=== PATIENT | male | born 1985 | race Caucasian/White ===

== ENCOUNTER 2020-07-15 20:57 | Emergency (ER) | payer OTHER, SELFPAY ==
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
[2020-07-15 21:11] VITALS: BP 121/89; PULSE 108; RESP 16; TEMP 36.6; O2SAT 98
--- NOTE | 2020-07-15 23:58 | PC.NURSE ---
Pt called multiple times by charge nurse, registration, and triage nurse. Not noted in waiting room.
== END 2020-07-15 23:58 | disposition left against medical advice (07) ==
LOC: ANHED 07-31 13:45
PROVIDERS: Emergency Provider Emergency Medicine; PCP Emergency Medicine
DX: S41.102A Unspecified open wound of left upper arm, initial encounter (principal)
CPT/HCPCS: 73090; 73110; 73130; 99199

== ENCOUNTER 2020-07-16 11:44 | Emergency (ER) | payer OTHER, SELFPAY ==
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
[2020-07-16 12:17] VITALS: BP 120/79; PULSE 92; RESP 20; TEMP 36.6; O2SAT 100
--- NOTE | 2020-07-16 13:40 | PC.NURSE ---
Attempted to cleanse wounds at this time, pt escalating and states that RN must stop. Pt will not allow R shoulder to be cleansed, asking for pain medication, this rn informed pt that the provider will have to see him first. Pt refusing to have wounds cleansed until that time.
[2020-07-16] MEDS: HYDROcodone/acetaminophen (*CRX) 5-325 MG TABLET 1 TAB PO (14:12)
[2020-07-16] MEDS: TETANUS,DIPHTHERIA,AC PERTUSSIS ADULT (0.5 ML) BOOSTRIX IM (14:13)
--- NOTE | 2020-07-16 14:16 | PC.NURSE ---
Pt medicated per provider. Pt refusing to let wounds be cleansed, states he does not want them touched and will clean at home.
--- NOTE | 2020-07-16 14:20 | PC.NURSE ---
INGA palmer updated on pt refusal for wound cleansing.
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
[2020-07-16 14:51] VITALS: BP 157/99; PULSE 92; RESP 16; O2SAT 100
== END 2020-07-16 14:52 | disposition home or self-care (01) ==
PROVIDERS: Emergency Provider Emergency Medicine; PCP Emergency Medicine
DX: S80.212A Abrasion, left knee, initial encounter (principal); S80.211A Abrasion, right knee, initial encounter; S50.812A Abrasion of left forearm, initial encounter; S50.312A Abrasion of left elbow, initial encounter; S60.512A Abrasion of left hand, initial encounter; S39.92XA Unspecified injury of lower back, initial encounter; F17.200 Nicotine dependence, unspecified, uncomplicated; V28.4XXA Motorcycle driver injured in noncollision transport accident in traffic accident, initial encounter; Z23 Encounter for immunization
CPT/HCPCS: 72110; 90471; 90715; 99284; A9270

== ENCOUNTER 2020-09-21 21:18 | Emergency (ER) | payer OTHER, SELFPAY ==
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
[2020-09-21 21:42] VITALS: O2SAT 100
--- NOTE | 2020-09-21 21:50 | ECG_ITS ---
Measurements Intervals [place] Rate: 100 P: 72 NE: 159 QRS: 59 QRSD: 95 T: 65 QT: 346 QTc: 447 Interpretive Statements SINUS T[address]ARD[address] ELEVATION IN ANTERIOR LEADS- PROBABLY EARLY REPOLARIZATION ABNORMALITY BORDERLINE ECG Electronically Signed On 09-24-2020 19:01:28 CDT by Urbano Corcoran D.O.
[2020-09-21 21:51] VITALS: BP 123/77; PULSE 99; RESP 16; TEMP 37; O2SAT 100
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
== END 2020-09-21 22:15 | disposition short-term general hospital (02) ==
PROVIDERS: Emergency Provider Emergency Medicine; PCP Emergency Medicine
DX: S06.0X9A Concussion with loss of consciousness of unspecified duration, initial encounter (principal); S02.2XXA Fracture of nasal bones, initial encounter for closed fracture; S02.32XA Fracture of orbital floor, left side, initial encounter for closed fracture; S02.832A Fracture of medial orbital wall, left side, initial encounter for closed fracture; S02.40DA Maxillary fracture, left side, initial encounter for closed fracture; S01.512A Laceration without foreign body of oral cavity, initial encounter; S01.511A Laceration without foreign body of lip, initial encounter; R91.8 Other nonspecific abnormal finding of lung field; K42.9 Umbilical hernia without obstruction or gangrene; K76.0 Fatty (change of) liver, not elsewhere classified; R00.0 Tachycardia, unspecified; R94.31 Abnormal electrocardiogram [ECG] [EKG]; Y04.2XXA Assault by strike against or bumped into by another person, initial encounter
CPT/HCPCS: 36415; 70450; 70486; 71260; 72125; 74177; 93005; 99285; Q9967

== ENCOUNTER 2022-03-07 10:42 | Emergency (ER) | payer OTHER, SELFPAY ==
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
[2022-03-07 11:06] VITALS: BP 123/71; PULSE 99; RESP 18; TEMP 36.4; O2SAT 100
== END 2022-03-07 11:45 | disposition home or self-care (01) ==
PROVIDERS: Emergency Provider Nurse Practitioner Family; PCP Emergency Medicine
DX: S22.42XA Multiple fractures of ribs, left side, initial encounter for closed fracture (principal); W17.89XA Other fall from one level to another, initial encounter; F17.290 Nicotine dependence, other tobacco product, uncomplicated
CPT/HCPCS: 71101; 99213; G0463

== ENCOUNTER 2022-04-21 07:06 | Outpatient (CLI) | payer OTHER, SELFPAY ==
[2022-04-21 07:49] LABS: Basophils Percent Auto 0.3 % (0.2-1.2); Eosinophils Absolute Auto 0.1 K/mm3 (0-0.3); Eosinophils Percent Auto 1.5 % (0-4.4); Hematocrit 45.5 % (42.0-52.0); Hemoglobin 15.1 g/dL (14.0-18.0); Immature Granulocyte Absolute 0.02 K/mm3 (0.00-0.031); Immature Granulocyte Percent A 0.3 % (0-0.5); Lymphocytes Absolute Auto 2.26 K/mm3 (0.9-3.2); Lymphocytes Percent Auto 33.8 % (18.3-44.2); Mean Corpuscular HGB Conc 33.2 g/dl (32-36); Mean Corpuscular Hemoglobin 30.5 pg (26-34); Mean Corpuscular Volume 91.9 fl (80-100); Mean Platelet Volume 10.5 fl (7.4-10.4); Monocytes Absolute Auto 0.6 K/mm3 (0.1-0.6); Monocytes Percent Auto 9.6 % (2.6-8.5); Neutrophils Absolute Auto 3.6 K/mm3 (1.3-6.7); Neutrophils Percent Auto 54.5 % (45.5-73.1); Platelet Count Result 200 k/mm3 (150-375); Red Blood Count 4.95 M/mm3 (4.6-6.20); Red Cell Distribution Width 13.1 % (11.5-14.5); White Blood Count 6.7 K/mm3 (4.5-10.0)
[2022-04-21 07:58] LABS: Alanine Aminotransferase 43 U/L (6-50); Albumin Level 4.6 g/dL (3.5-5.1); Alkaline Phosphatase 89 U/L (38-126); Anion Gap 6 mmol/L (8-16); Aspartate Amino Transferase 33 U/L (17-59); Bilirubin,Total 0.5 mg/dL (0.2-1.3); Blood Urea Nitrogen 20 mg/dL (9-20); Calcium 8.7 mg/dL (8.4-10.2); Carbon Dioxide 26 mmol/L (22-30); Chloride 108 mmol/L (98-107); Cholesterol 137 mg/dL (0-200); Estimated Glomerular Filt Rate > 60; Glucose 94 mg/dL (65-110); HDL Direct 22 mg/dL; Potassium 4.6 mmol/L (3.4-5.0); Sodium 140 mmol/L (137-145); Triglycerides 91 mg/dL (<150)
[2022-04-21 08:09] LABS: LDL Cholesterol Direct 91 mg/dL
[2022-04-21 08:28] LABS: Thyroid Stimulating Hormone 0.991 uIU/mL (0.465-4.680)
[2022-04-21 08:31] LABS: Hemoglobin A1C 5.3 % (<5.7)
== END 2022-04-21 07:07 | disposition home or self-care (01) ==
LOC: ANHLAB 07:07
PROVIDERS: PCP Family Medicine; Visit Provider Family Medicine
DX: I10 Essential (primary) hypertension (principal); R00.2 Palpitations; R63.5 Abnormal weight gain; Z13.220 Encounter for screening for lipoid disorders; Z83.3 Family history of diabetes mellitus; E11.9 Type 2 diabetes mellitus without complications; E78.2 Mixed hyperlipidemia
CPT/HCPCS: 36415; 80053; 80061; 83036; 84443; 85025

== ENCOUNTER 2022-06-09 10:05 | Outpatient (CLI) | payer OTHER, SELFPAY ==
--- NOTE | ~2022-06-09 | CT_ITS ---
CT Scan of the Chest without Contrast: Clinical Indication: Shortness of breath Technique: Contiguous sections were acquired throughout the chest without intravenous contrast. Dose reduction technique was used on this scan by utilizing automated exposure control and iterative recon struction technique. The dose-length product (DLP) was 312.60 mGy-cm. COMPARISON: 09/21/2020 Findings: Small calcified bilateral hilar lymph nodes are present. No pathologic lymphadenopathy seen in the ch est. The mediastinal soft tissues appear normal. There is no evidence of pleural or pericardial effusion. Calcified right upper lobe granuloma noted. There is minimal right basilar scarring or atelectasis. Images through the upper abdomen reveal no abnormalities. Impression: No acute abnormality. Evidence of prior granulomatous disease. Reviewed, dictated and finalized at [facility]. D CERTIFIED ARTS THERAPIST Impression: No acute abnormality. Evidence of prior granulomatous disease.
== END 2022-06-09 10:06 | disposition home or self-care (01) ==
PROVIDERS: PCP Family Medicine; Visit Provider Physician Assistant
DX: R06.00 Dyspnea, unspecified (principal); R91.8 Other nonspecific abnormal finding of lung field
CPT/HCPCS: 71250

== ENCOUNTER 2022-07-25 14:00 | Emergency (ER) | payer OTHER, SELFPAY ==
[2022-07-25 14:13] VITALS: BP 122/69; PULSE 74; RESP 18; TEMP 36.9; O2SAT 97
--- NOTE | 2022-07-25 15:04 | ED.EYEPROB ---
HPI - Eye Problem General Chief complaint: Eye Problems Stated complaint: Lt Eye Irritation Time Seen by Provider: 07/25/22 14:39 Source: patient Mode of arrival: ambulatory Limitations: no limitations History of Present Illness HPI Narrative: Patient presents today with left eye discomfort, blurred vision, photophobia. He was cutting rebar yesterday when his safety glasses came down and a spark went into his left eye. A few hours later he started experiencing the discomfort. He has attempted removal of the foreign body, which is visually evident, but has been unsuccessful. Related Data Home Medications Medication Instructions Recorded Confirmed No Home Medications 07/25/22 07/25/22 Allergies Allergy/AdvReac Type Severity Reaction Status Date / Time Penicillins AdvReac Severe Swelling Verified 07/25/22 14:05 of Lip/Tongue/Throat Review of Systems Review of Systems: CONSTITUTIONAL: Denies body aches, fever, chills, or sweats. EYES: +left eye foreign body, photophobia, blurred vision ENT: Denies rhinorrhea, congestion, sore throat, or otalgia. CARDIOVASCULAR: Denies chest pain, palpitations, or edema. RESPIRATORY: Denies cough or dyspnea. GASTROINTESTINAL: Denies abdominal pain, nausea, vomiting, or diarrhea. GENITOURINARY: Denies dysuria or hematuria. SKIN: Denies rash, itching, or wounds. MUSCULOSKELETAL: Denies back pain, joint pain, or myalgia. NEUROLOGIC: Denies headache, numbness, tingling, or weakness. PSYCH: Denies depression or anxiety. 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, initial encounter Dyspnea Encounter for screening for cardiovascular disorders Erectile dysfunction Injury of right index finger Left foot pain Left hand pain Left wrist pain Major depressive disorder, single episode, unspecified Neck pain Other chronic pain Periodic health assessment, general screening, adult Personal history of nicotine dependence PTSD (post-traumatic stress disorder) Radiculopathy of cervical spine Right elbow pain Right hand pain Screening for STDs (sexually transmitted diseases) Swelling of lymph nodes Unprotected sexual intercourse Unspecified dislocation of right acromioclavicular joint, initial encounter Surgical History Surgical History Hx of tonsillectomy Family History Family History Father Carcinoma of colon Social History Social History Social History: Smoking packs per day: 0.25 Smoking cigarettes per day: 5.0 Years smoked: 25 Smoking pack-years: 6.25 Smoking status: Former smoker Tobacco type: cigarettes Alcohol intake: former Substance use: never Substance use type: does not use Living arrangements: with family Occupation/Education: unemployed Gender identity (if verbalized by the patient): Male Sexual Orientation (if Verbalized by the Patient): Straight or Heterosexual Comments At time of signature, I have reviewed and agree with nursing past medical, surgical, social and family history unless otherwise noted. Please see nursing chart for further information. There is no relevant family history pertinent to the presenting complaint Exam Narrative: GENERAL: Well-appearing, well-nourished, and in no acute distress. HEAD: Normocephalic, atraumatic. EYES: EOMI. Left eye: redness. Obvious dark foreign body to 9 oclock position of the iris with possible rust ring. Attempted removal.
== END 2022-07-25 15:26 | disposition short-term general hospital (02) ==
PROVIDERS: Emergency Provider Nurse Practitioner; PCP Family Medicine
DX: T15.82XA Foreign body in other and multiple parts of external eye, left eye, initial encounter (principal); X58.XXXA Exposure to other specified factors, initial encounter; Z87.891 Personal history of nicotine dependence
CPT/HCPCS: 99212; A9270; G0463

== ENCOUNTER 2022-12-30 15:23 | Outpatient (CLI) | payer OTHER, SELFPAY ==
--- NOTE | ~2022-12-30 | XR_ITS ---
EXAMINATION: XR chest 2V 12/30/2022 15:39 INDICATION: Pleurodynia. Left-sided rib pain. PROCEDURE: 2 view chest COMPARISON: 07/05/2017 FINDINGS: The lungs are clear. The cardiomediastinal silhouette is within normal limits. There are no pleural effusions. There is no pneumothorax suspected. IMPRESSION: 1: NO ACUTE CARDIOPULMONARY DISEASE. Reviewed, dictated and finalized at location B.
== END 2022-12-30 15:24 | disposition home or self-care (01) ==
PROVIDERS: PCP Family Medicine; Visit Provider Physician Assistant
DX: R07.81 Pleurodynia (principal)
CPT/HCPCS: 71046

== ENCOUNTER 2023-04-13 13:33 | Outpatient (CLI) | payer OTHER, SELFPAY ==
[2023-04-13 14:27] LABS: Influenza A QL RT-PCR Positive (Negative); Influenza B QL RT-PCR Negative (Negative); RSV RNA, RT-PCR Negative (Negative); SARS-CoV-2 RNA PCR Negative (Negative)
== END 2023-04-13 13:34 | disposition home or self-care (01) ==
LOC: ANHLAB 13:34
PROVIDERS: PCP Family Medicine; Visit Provider Family Medicine
DX: J98.8 Other specified respiratory disorders (principal); R05.9 Cough, unspecified; Z20.822 Contact with and (suspected) exposure to COVID-19
CPT/HCPCS: 87637

== ENCOUNTER 2023-04-20 17:02 | Outpatient (CLI) | payer OTHER, SELFPAY ==
--- NOTE | ~2023-04-20 | XR_ITS ---
EXAM: XR elbow RT min 3V DATE: 04/20/2023 17:18 HISTORY: S59.909A - Unspecified injury of unspecified elbow, initi... . COMPARISON: X-ray forearm 07/15/2020. FINDINGS: Normal mineralization. No fracture or dislocation. No lytic or blastic lesion. Joint space s are maintained. No erosion or periosteal change. Soft tissues within normal limits. IMPRESSION: No acute osseous finding in the right elbow. Reviewed, dictated and finalized at location K. [facility]
== END 2023-04-20 17:03 | disposition home or self-care (01) ==
PROVIDERS: PCP Family Medicine; Visit Provider Family Medicine
DX: S59.909A Unspecified injury of unspecified elbow, initial encounter (principal); X58.XXXA Exposure to other specified factors, initial encounter
CPT/HCPCS: 73080

== ENCOUNTER 2024-03-27 18:14 | Emergency (ER) | payer OTHER, SELFPAY ==
--- NOTE | 2024-03-27 18:20 | ED.UPPEXIN ---
HPI - Extremity Injury (Upper) General Chief Complaint: Extremity Problem,Nontraumatic Stated Complaint: RT Elbow Pain Time Seen by Provider: 03/27/24 18:20 Source: patient Mode of arrival: ambulatory Limitations: no limitations History of Present Illness HPI narrative: Patient is a 2-year-old male who presents with right elbow pain. Patient was seen by PCP last and was told he had tendinitis. Patient states pain is getting worse. Denies any swelling. Patient reports increased pain with movement and feeling numbness and tingling to hand. Patient has tried use elbow brace but states it made pain worse. Patient does not take any medication due to being in recovery. Patient states he was referred to physical therapy but is unable to go due to working during their business hours. Related Data Allergies Allergy/AdvReac Type Severity Reaction Status Date / Time gabapentin Allergy Severe Seizure Verified 03/27/24 18:25 Penicillins Allergy Severe Swelling Verified 03/27/24 18:25 of Lip/Tongue/Throat SSRI AdvReac Severe Confusion Uncoded 03/27/24 18:25 buspar AdvReac Intermediate Drowsy Uncoded 03/27/24 18:25 Review of Systems Review of Systems: All systems reviewed & are unremarkable except as noted in HPI and below Constitutional: Constitutional: Denies body ache(s), Denies chills, Denies fatigue, Denies fever(s), Denies headache(s), Denies malaise and Denies weakness Eyes: Eyes: Denies blurry vision, Denies irritation and Denies loss of vision ENT: Denies otalgia, Denies headache(s), Denies nasal discharge, Denies sinus pain and Denies sore throat Cardiovascular: Cardiovascular: Denies chest pain, Denies irregular heart rhythm and Denies dyspnea Respiratory: Respiratory: Denies dyspnea Gastrointestinal: Gastrointestinal: Denies abdominal pain, Denies melena, Denies hematochezia, Denies diarrhea, Denies nausea and Denies vomiting Musculoskeletal: Musculoskeletal: Denies back pain, Denies myalgias and Reports arthralgias Integumentary/Breasts: Skin/Breast: Denies pruritus and Denies rash Neurologic: Denies headache(s), Denies loss of vision and Denies weakness Psychiatric: Psychiatric: Reports no additional psychiatric complaints Endocrine: Endocrine: Denies fatigue PMFSH Past Medical History Medical History Acute bacterial conjunctivitis of right eye ADD (attention deficit disorder) Anxiety and depression Back pain at L4-L5 level Cellulitis of head except face Cellulitis of right elbow Chronic left shoulder pain Chronic right shoulder pain 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, initial encounter Dyspnea Encounter for screening for cardiovascular disorders Erectile dysfunction Injury of right index finger Left foot pain Left hand pain Left wrist pain Major depressive disorder, single episode, unspecified Neck pain Other chronic pain Periodic health assessment, general screening, adult Personal history of nicotine dependence PTSD (post-traumatic stress disorder) Radiculopathy of cervical spine Right elbow pain Right hand pain Screening for STDs (sexually transmitted diseases) Swelling of lymph nodes Unprotected sexual intercourse Unspecified dislocation of right acromioclavicular joint, initial encounter Surgical History Surgical History Hx of tonsillectomy Family History Family History Father Carcinoma of colon Social History Social History Social History: Smoking packs per day: 0.50 Smoking cigarettes per day: 10.0 Years smoked: 25 Smoking pack-years: 12.50 Smoking status: Current every day smoker Tobacco type: cigarettes Second hand tobacco smoke exposure: No Alcohol intake: former Substance use: never Substance use type: does not use Do You Feel Safe in your Home?: Yes Lack of Transportation: No Lack of Food: Never True Current Housing: I Have Housing Concerned About Future Housing: No Difficulty Paying Gas/Electric Bills: No Difficulty Paying for Meds: No Currently Unemployed: No Education: Decline to Answer Difficulty w/ Childcare or Family Care: No Living arrangements: with family Occupation/Education: occupation Additional occupation/education comments: [employer] Gender identity (if verbalized by the patient): Male Sexual Orientation (if Verbalized by the Patient): Straight or Heterosexual Comments At time of signature, agree with nursing past medical, surgical, social and family history. There is no relevant family history pertinent to the presenting complaint. Exam Const: General: cooperative, healthy appearing, comfortable, no acute distress and well nourished Nutritional Appearance: well nourished Orientation/consciousness: patient oriented x3 Limitations: no limitations HENMT: Head: normal to inspection, normocephalic and atraumatic Ears: hearing grossly normal bilaterally and external ears normal Face/Nose/Sinus: Normal external nose present, normal facial exam and face symmetric Face and sinus: normal facial exam and face symmetric Mouth: Yes lip normal Eyes: General: appearance normal, both eyes and all related structures Alignment and Position: alignment normal and position normal Periorbital: periorbital findings normal Eyelids: eyelids normal Pupils: Equal, round and reactive pupils present EOM: EOMs intact bilaterally Neck: Neck: normal visual inspection, full ROM and supple Chest: Chest palpation & inspection: normal inspection of the chest Resp: Effort & Inspection: normal respiratory effort and able to speak in complete sentences Auscultation: clear to auscultation bilaterally Cardio: Rate: regular rate Rhythm: regular rhythm Heart sounds: S1 normal heart sound present and S2 normal heart sound present GI: Inspection: normal to inspection Skin: General skin exam: normal color and no rashes or lesions noted Neuro: General: patient oriented x3 and moves all extremities Cranial nerves: Yes Equal, round and reactive pupils present Speech: normal speech Gait exam (Neuro): Normal gait present Extrem: General: normal to inspection, full ROM and no edema Right upper extremity: elbow/forearm tenderness of the lateral epicondyle (on palpation) and of the medial epicondyle (on palpation), abnormal ROM pain with active ROM during with extension, with flexion, with pronation and with supination and distal pulses intact; no swelling and no ecchymosis Psych: Appearance: grossly normal and well kempt Mental Status: mental status grossly normal Speech and movement: Normal speech and movement present Affect: normal affect Attitude: cooperative Thought process: Normal thought process present Course Course Emergency Course: Patient is aware of diagnosis, understands and agrees to treatment plan. Anticipatory guidance given. Patient agrees to follow-up as directed and is aware of reasons to seek care at the emergency department. Portions of this record may have been created with voice recognition software Level of Care: Express Care Visit Vital Signs Vital signs: Reviewed MDM - Extremity Injury (Upper) MDM Narrative Medical decision making narrative: Discussed needing to establish with new primary for other physical therapy referral. Discussed brace in the importance of taking prescribed medication. Exam findings show no acute concerns or changes; patient is non-toxic appearing and is in no distress.? Patient is appropriate for outpatient treatment and follow-up. Discharge instructions reviewed with patient, as well as provided in writing per nursing staff. The instructions also include specific and strict return/GO TO THE ER as well as f/u information. All questions have been answered, and the patient deny any further questions with discharge and discharge plan. Differential Diagnosis Differential diagnosis: Likely other (Elbow fracture, bursitis, tendonitis, elbow strain) Medical Records Attestation: I reviewed the patient's medical records. Discharge Plan Discharge Clinical Impression: Tendinitis Patient Disposition: Home, Self-Care Condition: Stable Instructions: Tendinitis (ED) Additional Instructions: Minimize activities that aggravate the condition Ice should be applied to keep the swelling down. It can be used for 20 to 30 minutes, three or four times daily. Do not apply ice directly to your skin. Compression dressings, bandages or danelle-wraps will immobilize and support your injured elbow. Elevate your elbow above the level of your heart as often as possible Medication: Take steroids in the morning with food Please schedule a follow-up visit with your personal physician for further evaluation and treatment within 1week OR If your symptoms persist, change or worsen significantly before you can contact your personal physician then please, without delay, go to the emergency department for further evaluation. If you are having a hard time finding a physician please call our [facility] group liaison at [phone]. Prescriptions: New prednisone 20 mg tablet 40 mg PO DAILY 5 Days Qty: 10 0RF diclofenac sodium 1 % gel 2 g topical QID Qty: 100 0RF Rx Instructions: apply to single elbow, wrist or hand; for hand includes palm/fingers/back of hand No Action sildenafil 50 mg tablet 50 mg PO DAILY PRN (Reason: sexual activity) Qty: 30 0RF Rx Instructions: administer 30 minutes to 4 hours before activity Follow-up/Referrals: Jose Luke MD [Physician] - 3 Days (Establish care) UNKNOWN,DOCTOR [Non-Staff] - Time of Disposition: 18:57
[2024-03-27 18:29] VITALS: BP 129/69; PULSE 76; RESP 18; TEMP 36.7; O2SAT 100
== END 2024-03-27 18:57 | disposition home or self-care (01) ==
PROVIDERS: Emergency Provider Nurse Practitioner Family
DX: M77.11 Lateral epicondylitis, right elbow (principal); F17.210 Nicotine dependence, cigarettes, uncomplicated
CPT/HCPCS: 99213; G0463

== ENCOUNTER 2024-04-05 10:59 | Outpatient (CLI) | payer OTHER, SELFPAY ==
[2024-04-05 12:02] LABS: Influenza A QL RT-PCR Negative (Negative); Influenza B QL RT-PCR Negative (Negative); RSV RNA, RT-PCR Negative (Negative); SARS-CoV-2 RNA PCR Negative (Negative)
== END 2024-04-05 11:00 | disposition home or self-care (01) ==
LOC: ANHLAB 11:00
PROVIDERS: PCP Family Medicine; Visit Provider Student in an Organized Health Care Education/Training Program
DX: R05.9 Cough, unspecified (principal); R50.9 Fever, unspecified; Z20.822 Contact with and (suspected) exposure to COVID-19
CPT/HCPCS: 87637

== ENCOUNTER 2024-07-28 07:11 | Outpatient (CLI) | payer OTHER, SELFPAY ==
--- NOTE | ~2024-07-28 | MR_ITS ---
MRI of the right shoulder Technique: Axial proton-density fat-sat images, coronal proton density fat-sat and T2 fat-sat images, and sagittal T1-weighted and T2 fat-sat images were acquired. Clinical History: Other shoulder lesions Findings: There is mild AC joint degenerative change. Coracoclavicular, coracoacromial, and coracohum eral ligaments appear intact. Focal low-grade articular surface partial tear at the distal supraspinatus tendon measures 3 mm in ex tent. No high-grade partial or full-thickness tear of the supraspinatus or infraspinatus tendon. Ther e is mild tendinosis. Subscapularis tendon is intact. Tendon of the long head of the biceps is intact . No labral tear evident. Inferior glenohumeral ligament is intact. No significant degenerative change or effusion of the gleno humeral joint. No fluid distention of the subacromial/subdeltoid bursa. No muscle atrophy or edema. Impression: 3 mm low-grade focal articular surface partial tear of the distal supraspinous tendon insertion. Mild background rotator cuff tendinosis. Mild AC joint degenerative change. Reviewed, dictated and finalized at [facility]. Impression: 3 mm low-grade focal articular surface partial tear of the distal supraspinous tendon insertion. Mild background rotator cuff tendinosis. Mild AC joint degenerative change.
== END 2024-07-28 07:12 | disposition home or self-care (01) ==
LOC: MICIMG 07:12
PROVIDERS: PCP Family Medicine; Visit Provider Nurse Practitioner Family
DX: M75.81 Other shoulder lesions, right shoulder (principal); M19.011 Primary osteoarthritis, right shoulder
CPT/HCPCS: 73221

== ENCOUNTER 2025-04-10 12:01 | Outpatient (CLI) | payer OTHER, SELFPAY ==
--- NOTE | ~2025-04-10 | XR_ITS ---
XR lumbar spine 2-3V 04/10/2025 12:16 Indication: Low back pain Procedure: 3 views lumbar spine Comparison: 07/16/2020 Findings: Mild disc narrowing at L5-S1. Vertebral body heights are maintained. No fracture, subluxation or spondylolisthesis. Pedicles intact. Sacral foramen are symmetric. Impression: 1: Mild spondylosis at L5-S1. Reviewed, dictated and finalized at location O. RVISOR ANODIZING Impression: 1: Mild spondylosis at L5-S1.
--- OUTSIDE RECORDS SUMMARY | 2025-04-10 12:08 | XMS_ITS | Encounter Summary ---
Author Organization [facility] Address [address] [place] [address] Care Team Providers Care Food Counselor Name Role Phone Unavailable Primary Care Provider Unavailabl e Encounter Details Date Type Department Care Team (Late st Contact Info) Description 07/25/2022 Ophth Exam [facility] [address] [place] [phone] Azar Villagomez MD [address] [place] [address] Social History Tobacco Use Types Packs/Day Years Used Date Smoking Tobacco: Every Day Cigarettes Smokeless Tobacco: Never Alcohol Use Standard Drinks/Week Comments Yes 0 (1 standard drink = 0.6 oz pur e alcohol) AUDIT-C Answer Date Recorded Q1: How often do you have a drink containing alcohol? Never 07/25/2022 Q2: How many drinks containi ng alcohol do you have on a typical day when you are drinking? Patient does not drink Q3: How often do you have si x or more drinks on one occasion? Never 07/25/2022 Sex and Gender Information Value Date Recorded Sex Assigned at Not on file Legal Sex Male 11:03 PM CDT Gender Identity Not on file Sexual Orientation Not on file documented as of this encounter Plan of Treatment Not on file documented as of this encounter Visit Diagnoses Not on filedocumented in this encounter
--- OUTSIDE RECORDS SUMMARY | 2025-04-10 12:08 | XMS_ITS | Clinical Summary ---
Author Organization [facility] Address [address] [place] [address] Care Team Providers Care Canal Driver Name Role Phone Unavailable Primary Care Provider Unavailabl e Source Comments [facility],non-owned Affiliates and Associated Physician Practices is amultiple site organization consisting of ambulatory clinics and hospital sitesin [place], [place], [place] and [place]. This disclosure is being madepursuant to the Care Everywhere program and may not contain all information available regarding this patient. Last updated 18.[facility] Allergies Active Allergy Reactions Criticality Noted Date Comments Penicillins Unknown 09/21/2020 Medications * Be aware that medications may not be up to date on this document. Alwaysverify current medications with the patient. chlorhexidine (PERIDEX) 0.12 % solution Swish and spit 4 times daily 473 mL 1 1 Active Additional Information Patient not taking.Reported on 10/07/2020 ibuprofen (MOTRIN) 600 MG tablet Take 1 (one) tablet by mouth every 6 hours as needed for Pain 30 tablet Active Active Problems No known active problems Resolved Problems Problem Noted Date Diagnosed Date Resolved Date Closed fracture of mandible with routine healing 10/18/2020 10/18/2020 Social History Tobacco Use Types Packs/Day Years [...] on file Sexual Orientation Not on file Last Filed Vital Signs Vital Sign Reading Time Taken Comments Blood Pressure 135/79 07/25/2022 4:19 PM CDT Pulse 95 07/25/2022 4:19 PM CDT Temperature 37 C (98.6 F) 07/25/2022 4:19 PM CDT Respiratory Rate 18 07/25/2022 4:19 PM CDT Oxygen Saturation 99% 07/25/2022 4:19 PM CDT Inhaled Oxygen Concentration - - Weight 102.1 kg (225 lb) 07/25/2022 4:19 PM CDT Height 182.9 cm (6') 07/25/2022 4:19 PM CDT Body Mass Index 30.52 07/25/2022 4:19 PM CDT Plan of Treatment Health Maintenance Due Date Last Done Comments LIPID TESTING 1983 HIV SCREENING 10/09/1998 HEPATITIS C SCREENING 10/05/2001 DTAP/TDAP/TD VACCINES (1 - Tdap) 10/09/2002 HEPATITIS B VACCINE (1 of 3 - 19+ 3-dose series) 10/09/2002 PNEUMOCOCCAL VACCINE (1 of 2 - PCV) 10/09/2002 HPV VACCINE (1 - 3-dose SCDM series) 10/09/2010 DEPRESSION SCREENING 04/19/2024 COVID-19 VACCINE ( season) 2024 10/22/2021, 12/26/2020, 12/04/2020 INFLUENZA VACCINE (#1) 2024 2, 01/18/2016, 01/19/2015, Additional history exists ZOSTER VACCINE (1 of 2) 10/09/2033 HIB VACCINE Aged Out No longer eligi ble based on patient's age to complete this topic MENINGOCOCCAL (Group B) VACCINE SHARED DECISION-MAKING Aged Out No longer eligible based on patient's age to complete this topic MENINGOCOCCAL GROUPS A/C/Y/W VACCINE Aged Out No longer eligible based on patient's age to complete this topic Insurance
--- OUTSIDE RECORDS SUMMARY | 2025-04-10 12:08 | XMS_ITS | Encounter Summary ---
Author Organization [facility] Address [address] [place] [address] Care Team Providers Care Commercial Sales Representative Name Role Phone Unavailable Primary Care Provider Unavailabl e Reason for Visit * Reason Onset Date Comments Refill Request 09/27/2020 Encounter Details Date Type Department Care Team (Late st Contact Info) Description 09/27/2020 Telephone [facility] [address] [place] [address] Taina Rizzo MD [address] [place] [address] Refill Request Social History Tobacco Use Types Packs/Day Years Used Date Smoking Tobacco: Every Day Cigarettes Alcohol Use Standard Drinks/Week Comments Yes 0 (1 standard drink = 0.6 oz pur e alcohol) Sex and Gender Information Value Date Recorded Sex Assigned at Not on file Legal Sex Male 11:03 PM CDT Gender Identity Not on file Sexual Orientation Not on file documented as of this encounter Miscellaneous Notes * Telephone Encounter - Gracia Calixto - 09/27/2020 1:33 PM CDT Mr. Villegas called to request more pain medications. He stated he is hurting really bad. He can be reached at [phone]. documented in this encounter Plan of Treatment Not on file documented as of this encounter Visit Diagnoses Not on filedocumented in this encounter
--- OUTSIDE RECORDS SUMMARY | 2025-04-10 12:08 | XMS_ITS | Encounter Summary ---
Author Organization [facility] Address [address] [place] [address] Care Team Providers Care Chief Internal Auditor Name Role Phone Unavailable Primary Care Provider Unavailabl e Encounter Details Date Type Department Care Team (Late st Contact Info) Description 09/27/2020 Telephone [facility] [address] [place] [address] Taina Rizzo MD [facility] [place] [address] Social History Tobacco Use Types Packs/Day Years [...] Telephone Encounter - Gracia Calixto - 09/27/2020 12:05 PM CDT I have attempted to reach the patient several times at [phone], to discuss details for surgery. Line is always busy. documented in this encounter Plan of Treatment Not on file documented as of this encounter Visit Diagnoses Not on filedocumented in this encounter
--- OUTSIDE RECORDS SUMMARY | 2025-04-10 12:08 | XMS_ITS | Encounter Summary ---
Author Organization [facility] Address [address] [place] [address] Care Team Providers Care Gas Attendant Name Role Phone Unavailable Primary Care Provider Unavailabl e Encounter Details Date Type Department Care Team (Late st Contact Info) Description 09/22/2020 Ophth Exam [facility] [address] [place] [phone] Roe Moore MD [address] [place] [address] [place] [address] Social History Tobacco Use Types Packs/Day Years [...]
--- OUTSIDE RECORDS SUMMARY | 2025-04-10 12:08 | XMS_ITS | Clinical Summary ---
Author Organization [facility] Address [address] [place] [address] Care Team Providers Care Outside Parts Salesman Name Role Phone None, Provider MD Primary Care Provider Unavaila ble Allergies Active Allergy Reactions Criticality Noted Date Comments Penicillins Hives 02/12/2021 Medications HYDROcodone-acet aminophen 5-325 MG tabletIndication s:Acute Pain < 7 Day Supply Take 1 tablet by mouth every 6 (six) hours as needed for Pain. Indications : Acute Pain < 7 Day Supply 12 tablet 02/12/2021 Active Social History Tobacco Use Types Packs/Day Years Used Date Smoking Tobacco: Never Assessed Sex and Gender Information Value Date Recorded Sex Assigned at Not on file Legal Sex Male 2:41 PM CDT Gender Identity Not on file Sexual Orientation Not on file Last Filed Vital Signs Vital Sign Reading Time Taken Comments Blood Pressure 120/76 02/12/2021 12:30 PM CDT Pulse 84 02/12/2021 12:25 PM CDT Temperature 36.3 C (97.4 F) 02/12/2021 12:25 PM CDT Respiratory Rate 18 02/12/2021 12:25 PM CDT Oxygen Saturation 100% 02/12/2021 12:30 PM CDT Inhaled Oxygen Concentration - - Weight 81.6 kg (180 lb) 02/12/2021 12:25 PM CDT Height 182.9 cm (6') 02/12/2021 12:25 PM CDT Body Mass Index 24.41 02/12/2021 12:25 PM CDT Plan of Treatment Health Maintenance Due Date Last Done Comments Annual Physical 10/09/1986 Hepatitis C 10/09/2001 DTaP, Tdap and Td Vaccines ( 1 - Tdap) 10/09/2002 Hepatitis B Vaccines (1 of 3 - 19+ 3-dose series) 10/09/2002 HPV Vaccines (1 - 3-dose SCD M series) 10/09/2010 COVID-19 Vaccine (3 - 2024-2 6 season) 2024 12/26/2020, 12/04/2020 Influenza Adult (#1) 2025 Hepatitis A Vaccines Aged Out No long er eligible based on patient's age to complete this topic Meningococcal B Vaccine Aged Out No l onger eligible based on patient's age to complete this topic Meningococcal Vaccine Aged Out No wallace adolfo eligible based on patient's age to complete this topic Pneumococcal Vaccine: Pediatrics (0 to 5 Years) and At-Risk Patients (6 to 49 Years) Aged Out No longer eligible b ased on patient's age to complete this topic RSV Immunizations Under 20 Months Aged Out No longer eligible b ased on patient's age to complete this topic Insurance ([place]) [address] [place] [address]-[facility] OFFICE OF [facility] Care Teams Outside Parts Salesman Relationship Specialty Start Date End Date None, Provider, PCP - General 02/12/21
== END 2025-04-10 12:02 | disposition home or self-care (01) ==
PROVIDERS: PCP Family Medicine; Visit Provider Physician Assistant
DX: M47.817 Spondylosis without myelopathy or radiculopathy, lumbosacral region (principal)
CPT/HCPCS: 72100

== ENCOUNTER 2025-04-12 10:09 | Emergency (ER) | payer OTHER, SELFPAY ==
--- NOTE | ~2025-04-12 | XR_ITS ---
XR hip LT 2V w AP pelvis 04/12/2025 13:53 INDICATION: Left lower hip and back pain PROCEDURE: AP pelvis and 2 views left hip COMPARISON: No prior studies for comparison. FINDINGS: Fracture, dislocation or subluxation is not identified. The soft tissues appear within normal limits. No foreign bodies are identified. IMPRESSION: 1: NO ACUTE BONE OR JOINT ABNORMALITY IDENTIFIED. Reviewed, dictated and finalized at location O. TICS COORDINATOR
--- OUTSIDE RECORDS SUMMARY | 2025-04-12 10:11 | XMS_ITS | Encounter Summary ---
Author Organization [facility] Address [address] [facility] [place] [address] Care Team Providers Care Director Of Recruitment Name Role Phone Unavailable Primary Care Provider Unavailabl e Encounter Details Date Type Department Care Team (Late st Contact Info) Description 09/22/2020 Ophth Exam [facility] [address] [place] [phone] Roe Moore MD [address] [place] [address] [place] [address] Social History Tobacco Use Types Packs/Day Years [...]
--- OUTSIDE RECORDS SUMMARY | 2025-04-12 10:11 | XMS_ITS | Clinical Summary ---
Author Organization [facility] Address [address] [facility] [place] [address] Care Team Providers Care Entry Level Manufacturing Engineer Name Role Phone Unavailable Primary Care Provider Unavailabl e Source Comments [facility],non-owned Affiliates and Associated Physician Practices is amultiple site organization consisting of ambulatory clinics and hospital sitesin [place], [place], [place] and [place]. This disclosure is being madepursuant to the Care Everywhere program and may not contain all information available regarding this patient. Last updated 18.[facility] Allergies Active Allergy Reactions Criticality Noted Date [...]
--- OUTSIDE RECORDS SUMMARY | 2025-04-12 10:11 | XMS_ITS | Encounter Summary ---
Author Organization [facility] Address [address] [facility] [place] [address] Care Team Providers Care Leasing Assistant Name Role Phone Unavailable Primary Care Provider Unavailabl e Encounter Details Date Type Department Care Team (Late st Contact Info) Description 09/27/2020 Telephone [facility] [address] [place] [address] Taina Rizzo MD [facility] [place] [address] Social History Tobacco Use Types Packs/Day Years [...] to reach the patient several times at [phone], to discuss details for surgery. Line is always busy. documented in this encounter Plan of Treatment Not on file documented as of this encounter Visit Diagnoses Not on filedocumented in this encounter
--- OUTSIDE RECORDS SUMMARY | 2025-04-12 10:11 | XMS_ITS | Encounter Summary ---
Author Organization [facility] Address [address] [place] [address] Care Team Providers Care Geospatial Systems Integrator Name Role Phone Unavailable Primary Care Provider Unavailabl e Reason for Visit * Reason Onset Date Comments Refill Request 09/27/2020 Encounter Details Date Type Department Care Team (Late st Contact Info) Description 09/27/2020 Telephone [facility] [address] [place] [address] Taina Rizzo MD [address] [place] [address] Refill Request Social History Tobacco Use Types [...] really bad. He can be reached at [phone]. documented in this encounter Plan of Treatment Not on file documented as of this encounter Visit Diagnoses Not on filedocumented in this encounter
--- OUTSIDE RECORDS SUMMARY | 2025-04-12 10:11 | XMS_ITS | Clinical Summary ---
Author Organization [facility] Address [address] [place] [address] Care Team Providers Care Sample Box Maker Name Role Phone None, Provider MD Primary [...] patient's age to complete this topic Insurance ([place]) [address] [place] [address]-[facility] OFFICE OF [facility] Care Teams Sample Box Maker Relationship Specialty Start Date End Date None, Provider, PCP - General 02/12/21
--- OUTSIDE RECORDS SUMMARY | 2025-04-12 10:11 | XMS_ITS | Encounter Summary ---
Author Organization [facility] Address [address] [facility] [place] [address] Care Team Providers Care Lounge Car Attendant Name Role Phone Unavailable Primary Care Provider Unavailabl e Encounter Details Date Type Department Care Team (Late st Contact Info) Description 07/25/2022 Ophth Exam [facility] [address] [place] [phone] Azar Villagomez MD [address] [place] [address] Social History Tobacco Use Types Packs/Day Years [...]
[2025-04-12 10:45] VITALS: BP 119/67; PULSE 97; RESP 16; TEMP 36.9; O2SAT 98
--- OUTSIDE RECORDS SUMMARY | 2025-04-12 12:31 | XMS_ITS | Clinical Summary ---
Author Organization [facility] Address [address] [place] [address] Care Team Providers Care Seo Team Lead Name Role Phone None, Provider MD Primary [...] patient's age to complete this topic Insurance ([place]) [address] [place] [address]-[facility] OFFICE OF [facility] Care Teams Seo Team Lead Relationship Specialty Start Date End Date None, Provider, PCP - General 02/12/21
--- OUTSIDE RECORDS SUMMARY | 2025-04-12 12:31 | XMS_ITS | Encounter Summary ---
Author Organization [facility] Address [address] [facility] [place] [address] Care Team Providers Care Weave Room Supervisor Name Role Phone Unavailable Primary Care Provider Unavailabl e Encounter Details Date Type Department Care Team (Late st Contact Info) Description 09/22/2020 Ophth Exam [facility] [address] [place] [phone] Roe Moore MD [address] [place] [address] [place] [address] Social History Tobacco Use Types Packs/Day Years [...]
--- OUTSIDE RECORDS SUMMARY | 2025-04-12 12:31 | XMS_ITS | Encounter Summary ---
Author Organization [facility] Address [address] [place] [address] Care Team Providers Care Wastewater Engineer Name Role Phone Unavailable Primary Care Provider Unavailabl e Reason for Visit * Reason Onset Date Comments Refill Request 09/27/2020 Encounter Details Date Type Department Care Team (Late st Contact Info) Description 09/27/2020 Telephone [facility] [address] [place] [address] Taina Rizzo MD [address] [place] [address] Refill Request Social History Tobacco Use Types [...] really bad. He can be reached at [phone]. documented in this encounter Plan of Treatment Not on file documented as of this encounter Visit Diagnoses Not on filedocumented in this encounter
--- OUTSIDE RECORDS SUMMARY | 2025-04-12 12:31 | XMS_ITS | Clinical Summary ---
Author Organization [facility] Address [address] [facility] [place] [address] Care Team Providers Care Electrical Accessories Ii Assembler Name Role Phone Unavailable Primary Care Provider Unavailabl e Source Comments [facility],non-owned Affiliates and Associated Physician Practices is amultiple site organization consisting of ambulatory clinics and hospital sitesin [place], [place] and [place]. This disclosure is being madepursuant to the Care Everywhere program and may not contain all information available regarding this patient. Last updated 18.[facility] Allergies Active Allergy Reactions Criticality Noted Date [...]
--- OUTSIDE RECORDS SUMMARY | 2025-04-12 12:31 | XMS_ITS | Encounter Summary ---
Author Organization [facility] Address [address] [facility] [place] [address] Care Team Providers Care Learning And Development Intern Name Role Phone Unavailable Primary Care Provider Unavailabl e Encounter Details Date Type Department Care Team (Late st Contact Info) Description 09/27/2020 Telephone [facility] [address] [place] [address] Taina Rizzo MD [facility] [place] [address] Social History Tobacco Use Types Packs/Day Years [...] to reach the patient several times at [phone], to discuss details for surgery. Line is always busy. documented in this encounter Plan of Treatment Not on file documented as of this encounter Visit Diagnoses Not on filedocumented in this encounter
--- OUTSIDE RECORDS SUMMARY | 2025-04-12 12:31 | XMS_ITS | Encounter Summary ---
Author Organization [facility] Address [address] [facility] [place] [address] Care Team Providers Care Global Program Director Name Role Phone Unavailable Primary Care Provider Unavailabl e Encounter Details Date Type Department Care Team (Late st Contact Info) Description 07/25/2022 Ophth Exam [facility] [address] [place] [address] Azar Villagomez MD [address] [place] [address] Social History Tobacco Use Types Packs/Day Years [...]
--- NOTE | 2025-04-12 12:37 | ED.BACK ---
HPI - Back Pain/Injury General Chief Complaint: Back Pain/Injury Stated Complaint: back pain Time Seen by Provider: 04/12/25 11:57 Source: patient Mode of arrival: ambulatory Limitations: no limitations History of Present Illness HPI Narrative: This is a 39-year-old male who presents to the ED for back pain. Patient states that about a week ago while hunting. He states that he does not recall any specific injury but noted that when he was trying to get in his boat after hunting that he had severe pain to his left lower back that was worse with any movements. He has been having this issue since then. He saw his PCP the who obtained x-rays that were negative and was given prescription for some medicines that he is not recall the name of and was advised to come to the ED if he continued to have worsening pain. Patient states that the medicines have not been LP prompting him to come to ED. Denies bowel/bladder incontinence, numbness, saddle anesthesia. Related Data Allergies Allergy/AdvReac Type Severity Reaction Status Date / Time gabapentin Allergy Severe Seizure Verified 04/12/25 11:22 Penicillins Allergy Severe Swelling Verified 04/12/25 11:22 of Lip/Tongue/Throat SSRI AdvReac Severe Confusion Uncoded 04/04/25 13:35 buspar AdvReac Intermediate Drowsy Uncoded 04/04/25 13:35 Review of Systems Review of Systems: All systems reviewed & are unremarkable except as noted in HPI and below PMFSH Past Medical History Medical History Trigger point of right shoulder region Trigger point of shoulder region Rotator cuff tendonitis Right shoulder pain LORI (obstructive sleep apnea) Injury of elbow Lateral epicondylitis of right elbow MDD (major depressive disorder), recurrent episode, moderate Marijuana abuse, continuous Elbow hyperextension injury Personal history of nicotine dependence Dyspnea PTSD (post-traumatic stress disorder) Unprotected sexual intercourse 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, initial encounter Swelling of lymph nodes Screening for STDs (sexually transmitted diseases) Right hand pain Right elbow pain Radiculopathy of cervical spine Periodic health assessment, general screening, adult Other chronic pain Neck pain Major depressive disorder, single episode, unspecified Left wrist pain Left hand pain Left foot pain Injury of right index finger Erectile dysfunction Encounter for screening for cardiovascular disorders Chronic right shoulder pain Chronic left shoulder pain Cellulitis of right elbow Cellulitis of head except face Back pain at L4-L5 level Anxiety and depression ADD (attention deficit disorder) Acute bacterial conjunctivitis of right eye Unspecified dislocation of right acromioclavicular joint, initial encounter Surgical History Surgical History History of nasal surgery Hx of tonsillectomy Family History Family History Father Carcinoma of colon Mother Thyroid disorder Social History Social History Social History: Smoking packs per day: 0.50 Smoking cigarettes per day: 10.0 Years smoked: 25 Smoking pack-years: 12.50 Smoking status: Former smoker Tobacco type: cigarettes Second hand tobacco smoke exposure: No Smoking end date: 10/31/23 Alcohol intake: former Substance use: never Substance use type: does not use Lack of Transportation: No Lack of Food: Never True Current Housing: I Have Housing Concerned About Future Housing: No Difficulty Paying Gas/Electric Bills: No Difficulty Paying for Meds: No Currently Unemployed: No Education: Decline to Answer Difficulty w/ Childcare or Family Care: No Living arrangements: with family Occupation/Education: occupation Additional occupation/education comments: [employer] Gender identity (if verbalized by the patient): Male Sexual Orientation (if Verbalized by the Patient): Straight or Heterosexual Exam Narrative: APPEARANCE: No acute distress, nontoxic, resting in bed HEENT: Normocephalic, atraumatic, OMM RESPIRATORY: No respiratory distress CARDIOVASCULAR: Appears well perfused ABDOMINAL: Nondistended MUSCULOSKELETAl: Moves all extremities. Tenderness to palpation to the left mid lumbar paraspinal musculature, no midline tenderness, step-offs, deformities NEURO: Awake and alert. SKIN:: Warm, dry. No rashes lesions or abrasions PSYCHIATRIC: Normal affect/mood, Course Vital Signs Vital signs: Vital Signs Temperature 98.4 F 04/12/25 10:45 Pulse Rate 97 04/12/25 10:45 Respiratory Rate 16 04/12/25 10:45 Blood Pressure 119/67 04/12/25 10:45 Pulse Oximetry 98 04/12/25 10:45 Oxygen Delivery Room Air 04/12/25 10:45 Temperature 98.4 F 04/12/25 10:45 Pulse Rate 97 04/12/25 10:45 Respiratory Rate 16 04/12/25 10:45 Blood Pressure 119/67 04/12/25 10:45 Pulse Oximetry 98 04/12/25 10:45 Oxygen Delivery Room Air 04/12/25 10:45 MDM MDM Narrative Medical decision making narrative: 39-year-old male Presenting for back pain. On initial evaluation patient was in no acute distress afebrile, hemodynamic stable. Differentials include but are not limited to: Musculoskeletal injury, disc herniation, ureterolithiasis, cancer, constipation Notable exam findings: Tenderness palpation to the left mid lumbar paraspinal musculature without midline tenderness, step-offs, deformities He had minimal relief with Lidoderm, Toradol, Flexeril. He was initially given oxycodone with mild relief. Patient?s pain is positional and localized to back without signs of cord compression or cauda equina. Normal neurologic exams. No fever noted and no significant risk factors for osteomyelitis or spinal epidural abscess. No symptoms or signs to suggest pain is referred from abdominal or source. There are no pulsatile masses to exam. Patient ambulates with a steady gait and is felt to be up reasonable candidate for continued outpatient management advised follow-up with his PCP in the next week for re-evaluation. Patient was agreeable to this plan. Given strict return precautions. Differential Diagnosis Differential Diagnosis: Musculoskeletal injury, disc herniation, ureterolithiasis, cancer, constipation Imaging Data Radiologist's impression: ITS Impressions Hip/Pelvis X-Ray 04/12/25 14:04 IMPRESSION: 1: NO ACUTE BONE OR JOINT ABNORMALITY IDENTIFIED. Discharge Plan Discharge Clinical Impression: Low back pain Qualifiers: Chronicity: acute Back pain laterality: left Sciatica presence: without sciatica Qualified Code(s): M54.50 - Low back pain, unspecified Patient Disposition: Home Condition: Stable Instructions: Antibiotic Form, Acute Low Back Pain (ED) Additional Instructions: Take prednisone and Lidoderm as prescribed. Follow-up with your PCP in the next week for re-evaluation. Return to the ED for any new or worsening symptoms. Patient Language: Divehi Prescriptions: New lidocaine [Lidoderm] 5 % adhesive patch,medicated 1 patch topical DAILY Qty: 15 0RF Rx Instructions: leave on most painful area for up to 12 hrs prednisone 20 mg tablet 20 mg PO DAILY 3 Days Qty: 3 0RF No Action fluticasone propionate 50 mcg/actuation spray,suspension 2 spray intranasal DAILY Qty: 16 1RF Rx Instructions: administer into each nostril doxycycline hyclate 100 mg tablet 100 mg PO BID 10 Days Qty: 20 0RF ipratropium bromide 21 mcg (0.03 %) spray,non-aerosol 2 spray intranasal BID Qty: 30 0RF Rx Instructions: administer into each nostril celecoxib [Celebrex] 200 mg capsule 200 mg PO BID Qty: 60 0RF cyclobenzaprine 5 mg tablet 5 mg PO TID PRN (Reason: muscle spasm) Qty: 60 0RF sildenafil 50 mg tablet 50 mg PO DAILY PRN (Reason: sexual activity) Qty: 30 0RF Rx Instructions: administer 30 minutes to 4 hours before activity Follow-up/Referrals: Todd Thompson MD [Primary Care Provider, Family Practice]
[2025-04-12] MEDS: KETOROLAC 30 MG/ML VIAL (*BKC) IM (12:44)
[2025-04-12] MEDS: CYCLOBENZAPRINE HCL 10 MG TABLET PO (12:44)
[2025-04-12] MEDS: LIDOCAINE 5% PATCH 1 PATCH TRANSDERM (12:45)
[2025-04-12] MEDS: oxyCODONE HCL (*CRX) 5 MG TAB IR PO (13:42)
== END 2025-04-12 14:41 | disposition home or self-care (01) ==
PROVIDERS: Emergency Provider Student in an Organized Health Care Education/Training Program; PCP Family Medicine
DX: M54.50 Low back pain, unspecified (principal); G47.30 Sleep apnea, unspecified; F32.A Depression, unspecified; F41.9 Anxiety disorder, unspecified; F98.8 Other specified behavioral and emotional disorders with onset usually occurring in childhood and adolescence
CPT/HCPCS: 73502; 96372; 99283; A9270; J1885; J7512